=== PATIENT | male | born 1990 | race Two or more races ===

== ENCOUNTER 2017-07-27 08:30 | Emergency (ER) | payer OTHER ==
[~2017-07-27] VITALS: Ht 185.4 cm; Wt 90.0 kg
[2017-07-27] MEDS ORDERED: TETANUS, DIPHTHERIA, PERTUSSIS VAC/PF 0.5ML (>7YR OLD) IM ONE (09:30)
[2017-07-27] MEDS ORDERED: HYDROCODONE/ACETAMINOPHEN 5/325MG TABLET PO ONE (10:30)
[2017-07-27 13:21] VITALS: BP 112/76
== END 2017-07-27 13:26 | disposition short-term general hospital (02) ==
LOC: ER 08:35
DX: S82.252A Displaced comminuted fracture of shaft of left tibia, initial encounter for closed fracture (principal); F17.210 Nicotine dependence, cigarettes, uncomplicated; V47.0XXA Car driver injured in collision with fixed or stationary object in nontraffic accident, initial encounter; Y93.89 Activity, other specified; Y92.488 Other paved roadways as the place of occurrence of the external cause
CPT/HCPCS: 29505; 73560; 90471; 90715; 99285; X7700; Z7610

== ENCOUNTER 2018-01-28 03:21 | Emergency (ER) | payer MEDICAID, OTHER ==
[~2018-01-28] VITALS: Ht 188 cm; Wt 83.0 kg
[2018-01-28 04:10] VITALS: BP 129/82
[2018-01-28] MEDS ORDERED: KETOROLAC 60MG/2ML VIAL IM ONE (04:15)
== END 2018-01-28 05:46 | disposition home or self-care (01) ==
LOC: ER 03:21
DX: M25.562 Pain in left knee (principal); F17.200 Nicotine dependence, unspecified, uncomplicated; Z98.890 Other specified postprocedural states; Z87.81 Personal history of (healed) traumatic fracture
CPT/HCPCS: 73562; 93971; 96372; 99284; J1885

== ENCOUNTER 2020-05-11 20:50 | Emergency (ER) | payer MEDICAID ==
[~2020-05-11] VITALS: Ht 188 cm; Wt 82.0 kg
[2020-05-11 22:28] VITALS: BP 133/69
== END 2020-05-11 22:32 | disposition home or self-care (01) ==
LOC: ER 20:50
DX: F19.239 Other psychoactive substance dependence with withdrawal, unspecified (principal)
CPT/HCPCS: 99283

== ENCOUNTER 2020-05-14 08:47 | Emergency (ER) | payer MEDICAID ==
[~2020-05-14] VITALS: Ht 188 cm; Wt 82.0 kg
[2020-05-14] MEDS ORDERED: KETOROLAC 30MG/ML VIAL IM ONE (09:45)
[2020-05-14 10:03] VITALS: BP 118/82
== END 2020-05-14 10:08 | disposition home or self-care (01) ==
LOC: ER 08:47
DX: M54.30 Sciatica, unspecified side (principal); M79.604 Pain in right leg
CPT/HCPCS: 96372; 99283; J1885

== ENCOUNTER 2021-07-12 19:39 | Emergency (ER) | payer MEDICAID | END 2021-07-12 20:18 | disposition left against medical advice (07) | LOC: ER 19:39 | DX: Z53.21 Procedure and treatment not carried out due to patient leaving prior to being seen by health care provider (principal) ==

== ENCOUNTER 2021-09-13 07:34 | Emergency (ER) | payer MEDICAID ==
[~2021-09-13] VITALS: Ht 185.4 cm; Wt 77.0 kg
[2021-09-13] MEDS ORDERED: IBUPROFEN 600MG TABLET PO STA (08:04)
[2021-09-13 08:11] VITALS: BP 127/63
[2021-09-13] MEDS ORDERED: IBUP-2029 MT (08:41)
== END 2021-09-13 09:04 | disposition home or self-care (01) ==
LOC: ER 07:34
DX: N28.9 Disorder of kidney and ureter, unspecified (principal); M79.605 Pain in left leg; M79.604 Pain in right leg
CPT/HCPCS: 36415; 80048; 99283

== ENCOUNTER 2021-11-08 02:52 | Emergency (ER) | payer MEDICAID ==
[~2021-11-08] VITALS: Ht 170.2 cm; Wt 76.2 kg
[~2021-11-08 02:52] MED LIST: IBUP-2029 MT
[2021-11-08 04:22] VITALS: BP 136/82
== END 2021-11-08 04:23 | disposition home or self-care (01) ==
LOC: ER 02:52
DX: F16.10 Hallucinogen abuse, uncomplicated (principal)
CPT/HCPCS: 99281

== ENCOUNTER 2022-02-02 23:25 | Emergency (ER) | payer MEDICAID ==
[~2022-02-02] VITALS: Ht 177.8 cm; Wt 82.0 kg
[2022-02-02 23:44] VITALS: BP 136/79
[2022-02-03] MEDS ORDERED: TETANUS, DIPHTHERIA, PERTUSSIS VAC/PF 0.5ML (>10YR OLD) IM ONE
[2022-02-03] MEDS ORDERED: ACETAMINOPHEN 325MG TABLET PO ONE
== END 2022-02-03 05:07 | disposition home or self-care (01) ==
LOC: ER 23:25
DX: S20.211A Contusion of right front wall of thorax, initial encounter (principal); F15.10 Other stimulant abuse, uncomplicated; F12.10 Cannabis abuse, uncomplicated; Y00.XXXA Assault by blunt object, initial encounter; Y93.89 Activity, other specified; Y92.89 Other specified places as the place of occurrence of the external cause
CPT/HCPCS: 99283

== ENCOUNTER 2022-04-22 11:15 | Emergency (ER) | payer MEDICAID ==
[~2022-04-22] VITALS: Ht 182.9 cm; Wt 85.0 kg
[2022-04-22] MEDS ORDERED: LORAZEPAM 1MG TABLET PO ONE (12:30)
[2022-04-22 14:07] LABS: BASOPHILS % 0.9 % (0.0-2.0); EOSINOPHILS % 0.6 % (0.0-5.0); HEMATOCRIT. 38.1 % (42.0-52.0); HEMOGLOBIN. 12.3 g/dL (14.0-18.0); LYMPHOCYTES % 24.4 % (20.0-50.0); MEAN CORPUSCULAR VOLUME 74.6 fL (80.0-94.0); MEAN PLATELET VOLUME 7.6 fl (7.4-10.4); MONOCYTES % 12.3 % (2.0-8.0); NEUTROPHILS % 61.8 % (40.0-76.0); PLATELET 243 x1000/uL (130-400); RED CELL DISTRIBUTION WIDTH 13.8 % (11.6-14.6)
[2022-04-22 14:14] LABS: CHLORIDE 100 mEq/L (98-107)
[2022-04-22 14:26] LABS: ETHANOL BLOOD < 10 mg/dL
[2022-04-22 16:34] LABS: CLARITY URINE CLEAR (CLEAR); COLOR URINE YELLOW (YELLOW); KETONES URINE TRACE (NEGATIVE); LEUKOCYTE ESTERASE URINE 1+ (NEGATIVE); NITRITE URINE NEGATIVE (NEGATIVE); OCCULT BLOOD URINE TRACE (NEGATIVE); PH URINE 5.5 (4.5-8.0); PROTEIN URINE 1+ (NEGATIVE); SPECIFIC GRAVITY URINE 1.025 (1.005-1.030); UROBILINOGEN URINE 0.2 E.U./dL (0.2-1.0)
[2022-04-22 17:16] LABS: *AMPHETAMINES SCREEN URINE PRESUMTIVE POSITIVE (NEGATIVE); *BARBITURATES SCREEN URINE NEGATIVE (NEGATIVE); *BENZODIAZEPINES SCREEN URINE NEGATIVE (NEGATIVE); *COCAINE SCREEN URINE NEGATIVE (NEGATIVE); CANNABINOID URINE SCREEN PRESUMTIVE POSITIVE (NEGATIVE); METHADONE URINE SCREEN NEGATIVE (NEGATIVE); OPIATES URINE SCREEN NEGATIVE (NEGATIVE); PHENCYCLIDINE URINE SCREEN NEGATIVE (NEGATIVE)
[2022-04-23 10:30] VITALS: BP 112/66
== END 2022-04-23 12:06 | disposition home or self-care (01) ==
LOC: ER 11:15
DX: R45.851 Suicidal ideations (principal); F32.9 Major depressive disorder, single episode, unspecified; F15.10 Other stimulant abuse, uncomplicated; Z59.00 Homelessness unspecified
CPT/HCPCS: 36415; 80053; 80305; 80307; 80320; 80329; 81003; 85025; 99285; G0480

== ENCOUNTER 2025-04-19 11:43 | Emergency (ER) | payer MEDICAID ==
[~2025-04-19] VITALS: Ht 188 cm; Wt 102.0 kg
[~2025-04-19 11:43] MED LIST changes: +IBUP-1455 MT; -IBUP-2029 MT
[2025-04-19 11:44] VITALS: TEMP 36.9; O2SAT 98
[2025-04-19] MEDS ORDERED: DIPH25CA83 MT (13:32)
[2025-04-19] MEDS ORDERED: P50 MT (13:32)
[2025-04-19 13:46] VITALS: BP 118/85; PULSE 77; RESP 16; O2SAT 97
== END 2025-04-19 13:49 | disposition home or self-care (01) ==
LOC: ER 11:43
DX: R21 Rash and other nonspecific skin eruption (principal); Z79.899 Other long term (current) drug therapy
CPT/HCPCS: 99283; Z7610